=== PATIENT | female | born 1995 | race Caucasian/White ===

== ENCOUNTER 2017-10-14 13:23 | Outpatient (CLI) | payer OTHER | END 2017-10-14 13:24 | disposition home or self-care (01) | LOC: BICMRI 13:23 | PROVIDERS: ATTEND Family Medicine | DX: R20.2 Paresthesia of skin (principal); R20.0 Anesthesia of skin; Z82.0 Family history of epilepsy and other diseases of the nervous system | CPT/HCPCS: 70551 ==

== ENCOUNTER 2017-11-29 15:25 | Outpatient (CLI) | payer OTHER | END 2017-11-29 15:26 | disposition home or self-care (01) | LOC: BICMRI 15:25 | PROVIDERS: ATTEND Psychiatry & Neurology Neurology | DX: R20.2 Paresthesia of skin (principal) | CPT/HCPCS: 72141 ==